=== PATIENT | male | born 1990 | race Caucasian/White ===

== ENCOUNTER 2023-10-30 18:11 | Emergency (ER) | payer BC, MEDICAID, SELFPAY ==
--- NOTE | 2023-10-30 18:12 | XRR_ITS ---
PROCEDURE INFORMATION: Exam: XR Chest Exam date and time: 10/30/2023 6:46 PM Age: 33 years old Clinical indication: Shortness of breath; Additional info: Cp TECHNIQUE: Imaging protocol: Radiologic exam of the chest. Views: 1 view. COMPARISON: No relevant prior studies available. FINDINGS: Lungs: Unremarkable. No consolidation. Pleural spaces: Unremarkable. No pleural effusion. No pneumothorax. Heart/Mediastinum: Unremarkable. No cardiomegaly. Bones/joints: Unremarkable. XR/XR chest 1V portable [id number] IMPRESSION: No acute findings.
--- NOTE | 2023-10-30 18:12 | ECG_ITS ---
[facility] Test Date: 2023-10-30 Pat Name: Alejandro Luz Department: Room: Gender: Male [facility] Care Center Assistant Director: : 1990 Requested By: Linda Jaime Order Number: [id number] Korin MD: Tru Jhaveri M.D. Measurements Intervals [place] Rate: 76 P: 56 NV: 172 QRS: 54 QRSD: 96 T: 32 QT: 371 QTc: 417 Interpretive Statements SINUS RHYTHM WITH MARKED SINUS ARRHYTHMIA No previous ECG available for comparison Electronically Signed On 10-31-2023 7:18:40 DIRECTOR GLOBAL MARKET RESEARCH by Tru Jhaveri M.D. [email or web address].[email or web address] health centerRa Pharmaceuticalsbluffton hospital.Pongr/store/Ov/[id number]
[2023-10-30 18:20] VITALS: BP 154/89; PULSE 81; RESP 16; TEMP 36.4; O2SAT 99; BMI 32.4
[2023-10-30 18:51] LABS: Basophils % 0.4 %; Eosinophils # 0.4 10^3/uL (0.0-0.8); Eosinophils % 4.9 %; Hematocrit 48.9 % (37-53); Lymphocytes # 1.8 10^3/uL (0.8-4.8); Lymphocytes % 25.5 %; Mean Corpuscular HGB Conc 31.5 g/dL (30-55); Mean Corpuscular Hemoglobin 25.5 pg (27-33); Mean Corpuscular Volume 81.1 fl (82-101); Mean Platelet Volume 9.8 fL (7.4-10.4); Monocytes # 0.4 10^3/uL (0.2-0.9); Monocytes % 5.8 %; Neutrophils # 4.49 10^3/uL (1.8-7.7); Neutrophils % 63.1 %; Nucleated Red Blood Cells % 0 %; Platelet Count 243 10^3/cmm (157-399); Red Blood Count 6.03 10^6/uL (3.85-5.65); Red Cell Distribution Width 12.7 % (12.1-15.1); White Blood Count 7.11 10^3/uL (3.29-11.43)
--- NOTE | 2023-10-30 19:02 | ED_ITS ---
HPI - Chest Pain 2 General: Chief Complaint: Chest Pain Stated Complaint: cpsob Time Seen by Provider: 10/30/23 18:12 History of Present Illness: Patient presents to the ER with left-sided chest pressure began couple hours ago. Rated a 7 out of 10 when it began it has improved but is still there. Patient says he may be worse with when he exerts himself and he gets little short of breath. Patient says this is more of a pressure and is not sharp and stabbing it is all left-sided and stays on the left side. Patient is never had this before. Patient has no cardiac history himself does have a strong family history. Review of Systems 2 General: Reports: 10 or more systems reviewed and unremarkable except in HPI and below Physical Exam 2 Const: COMMON NORMALS: no acute distress, average body habitus, patient oriented x3, no limitations, healthy appearing, alert and well nourished HENMT: COMMON NORMALS: normocephalic, atraumatic, hearing grossly normal bilaterally, external ears normal, Normal external nose present, moist oral mucous membranes and oropharynx normal HEAD & SCALP: normocephalic and atraumatic NOSE: Normal external nose present EXTERNAL EAR: Yes external ears normal Neck/C-Spine: COMMON NORMALS: full ROM, no lymphadenopathy, supple, no meningeal signs, no JVD and Thyroid normal THYROID: Thyroid normal Chest: COMMONS NORMALS: normal inspection of the chest and normal palpation of entire chest wall Resp: COMMON NORMALS: normal respiratory effort, No retractions, No use of accessory muscles and clear to auscultation bilaterally AUSCULTATION: clear to auscultation bilaterally Cardio: COMMON NORMALS: no JVD, regular rate, regular rhythm, S1 normal heart sound present, S2 normal heart sound present, No gallops present (Cardio), No clicks present (Cardio), No murmurs present (Cardio) and No rub (Cardio) R ATE: regular rate RHYTHM: regular rhythm HEART SOUNDS: S1 normal heart sound present and S2 normal heart sound present GI: COMMON NORMALS: Normal to inspection, nondistended, normoactive bowel sounds present, Soft to palpation, non-tender, No hepatosplenomegaly present and no masses PALPATION: Yes Soft to palpation and Yes No hepatosplenomegaly present Neuro: COMMON NORMALS: patient oriented x3 SENSORIUM/ORIENTATION: Yes alert MENINGEAL SIGNS: Yes no meningeal signs Course 2 Vital Signs: Vital signs: Vital Signs Temperature 97.5 F L 10/30/23 18:20 Pulse Rate 73 10/30/23 20:59 Respiratory Rate 16 10/30/23 20:59 Blood Pressure 123/79 10/30/23 20:59 Pulse Oximetry 97 10/30/23 20:59 Oxygen Delivery Me thod Room Air 10/30/23 18:20 MDM - Chest Pain Medical Decision Making Patient presents to the ER with chest pain. Patient was worked up in a standard chest pain fashion included serial EKGs, serial labs and chest x-ray. All of which were essentially benign did not show any acute cardiac cause of his chest pain. Troponin was 6 with a delta of 0 patient be discharged home and should follow-up with his primary care doctor for further evaluation testing. Differential Diagnosis Unlikely acute massive pulmonary embolism, acute respiratory failure, acute myocardial infarction, cardiac arrest or sudden cardiac Medical Records I reviewed the patient's medical records. Lab Data I reviewed the patient's lab results. 10/30/23 18:44 10/30/23 18:44 Radiology Impressions Chest X-Ray 10/30/23 18:12 IMPRESSION: No acute findings. Laboratory Results WBC 7.11 10^3/uL (3.29-11.43) 10/30/23 18:44 RBC 6.03 10^6/uL (3.85-5.65) H 10/30/23 18:44 Hgb 15.40 g/dL (11.27-16.99) 10/30/23 18:44 Hct 48.9 % (37-53) 10/30/23 18:44 MCV 81.1 fl (82-101) L 10/30/23 18:44 MCH 25.5 pg (27-33) L 10/30/23 18:44 MCHC 31.5 g/dL (30-55) 10/30/23 18:44 RDW 12.7 % (12.1-15.1) 10/30/23 18:44 Plt Count 243 10^3/cmm (157-399) 10/30/23 18:44 MPV 9.8 fL (7.4-10.4) 10/30/23 18:44 Neut % (Auto) 63.1 % 10/30/23 18:44 Lymph % (Auto) 25.5 % 10/30/23 18:44 Stanley % (Auto) 5.8 % 10/30/23 18:44 Eos % (Auto) 4.9 % 10/30/23 18:44 Baso % (Auto) 0.4 % 10/30/23 18:44 Neut # (Auto) 4.49 10^3/uL (1.8-7.7) 10/30/23 18:44 Lymph # (Auto) 1.8 10^3/uL (0.8-4.8) 10/30/23 18:44 Stanley # (Auto) 0.4 10^3/uL (0.2-0.9) 10/30/23 18:44 Eos # (Auto) 0.4 10^3/uL (0.0-0.8) 10/30/23 18:44 Baso # (Auto) 0.0 10^3/uL (0.0-0.1) 10/30/23 18:44 Nucleated RBC % (auto) 0 % 10/30/23 18:44 Nucleated RBCs # 0.0 /100WBC 10/30/23 18:44 Sodium 136 mmol/L (136-145) 10/30/23 18:44 Potassium 3.6 mmol/L (3.5-5.1) 10/30/23 18:44 Chloride 100 mmol/L (98-107) 10/30/23 18:44 Carbon Dioxide 26 mmol/L (22-29) 10/30/23 18:44 Anion Gap 13.6 (5-19) 10/30/23 18:44 BUN 11 mg/dL (6-20) 10/30/23 18:44 Creatinine 0.9 mg/dL (0.7-1.2) 10/30/23 18:44 GFR Calculation 96.0 mL/min (90-130) 10/30/23 18:44 Glucose 101 mg/dL (65-115) 10/30/23 18:44 Calculated Osmolality 282 mOsm/kg (285-295) L 10/30/23 18:44 Calcium 9.5 mg/dL (8.5-10.5) 10/30/23 18:44 Total Bilirubin 0.3 mg/dL (0.15-1.2) 10/30/23 18:44 AST 22 U/L (0-40) 10/30/23 18:44 ALT 40 U/L (0-41) 10/30/23 18:44 Alkaline Phosphatase 77 U/L (40-130) 10/30/23 18:44 Troponin T Baseline < 6 ng/L (0-15) 10/30/23 18:44 Troponin T 120 Minute 6.00 ng/L (0-15) 10/30/23 20:25 Delta Troponin T 0.49742 ABS# (0-10) 10/30/23 20:25 NT-Pro-B Natriuret Pep < 36 pg/mL (0-125) 10/30/23 18:44 Total Protein 6.9 g/dL (6.6-8.7) 10/30/23 18:44 Albumin 4.5 g/dL (3.5-5.2) 10/30/23 18:44 Globulin 2.4 g/dL (1.3-4.6) 10/30/23 18:44 All radiology interpretation(s) finalized by discharge EKG Data EKG 1: I personally reviewed and interpreted this EKG as follows: EKG interpretation date: 10/30/23 EKG interpretation time: 18:16 Prior EKG tracings: not available for review Interpretation: EKG shows ventricular rate 76 bpm, SD interval 172, QRS duration 96, QTc of 4 1, sinus rhythm with marked sinus arrhythmia, EKG 2: I personally reviewed and interpreted this EKG as follows: EKG interpretation date: 10/30/23 EKG interpretation time: 21:12 Prior EKG tracings: available for review Interpretation: EKG showed ventricular rate 67 bpm, SD interval 165, QRS duration 94, QTc of 394, sinus rhythm, no ST-T wave changes Discharge Plan Discharge Patient Disposition: Home Clinical Impression: Atypical chest pain Condition: Stable Discharge Orders: Discharge ED (Routine); Ordered 10/30/23 Ordered By: Rylan Joseph Patient Instructions: Chest Pain (ED) Activity Restrictions/Additional Instructions: Your chest pain workup in the ER did not show any acute coronary cause of your chest pain. It is thought to be noncardiac in nature. Please follow-up with your family practice physician within the next 7 to 10 days for further evaluation and testing. If anything changes please feel free to return to the ER. Coding Level of Care Code ED Marketing Programs Manager for Kaiden Carrasco
[2023-10-30 19:14] LABS: Troponin(5th) Baseline < 6 ng/L (0-15)
[2023-10-30] MEDS: ketorolac 30 mg/mL INJ IVP (19:15)
[2023-10-30 19:45] LABS: Alanine Aminotransferase 40 U/L (0-41); Albumin Level 4.5 g/dL (3.5-5.2); Alkaline Phosphatase 77 U/L (40-130); Aspartate Amino Transferase 22 U/L (0-40); Blood Urea Nitrogen 11 mg/dL (6-20); Calcium 9.5 mg/dL (8.5-10.5); Carbon Dioxide 26 mmol/L (22-29); Chloride 100 mmol/L (98-107); Globulin 2.4 g/dL (1.3-4.6); Glucose 101 mg/dL (65-115); NT Pro B Type Natriuretic Pept < 36 pg/mL (0-125); Osmolality Calculated 282 mOsm/kg (285-295); Sodium 136 mmol/L (136-145); Total Bilirubin 0.3 mg/dL (0.15-1.2); Total Protein 6.9 g/dL (6.6-8.7)
[2023-10-30 19:47] LABS: Anion Gap 13.6 (5-19); Potassium 3.6 mmol/L (3.5-5.1)
[2023-10-30 20:54] LABS: Troponin 5 2HR Delta 0.00001 ABS# (0-10)
[2023-10-30 20:59] VITALS: BP 123/79; PULSE 73; RESP 16; O2SAT 97
--- NOTE | 2023-10-30 21:12 | ECG_ITS ---
[facility] Test Date: 2023-10-30 Pat Name: Alejandro Luz Department: Room: Gender: Male Rn House Supervisor: : 1990 Requested By: Linda Jaime Order Number: [id number] Langley MD: Tru Jhaveri M.D. Measurements Intervals [place] Rate: 67 P: 28 LA: 165 QRS: 47 QRSD: 94 T: 40 QT: 378 QTc: 401 Interpretive Statements SINUS RHYTHM Compared to ECG 10/30/2023 18:16:58 Sinus arrhythmia no longer present Electronically Signed On 10-31-2023 7:19:20 CENTRAL SUPPLY SUPERVISOR by Tru Jhaveri M.D. [email or web address].[email or web address]store/[id number]
[2023-10-30 21:20] VITALS: BP 123/79; PULSE 73; RESP 16; TEMP 36.4; O2SAT 97
== END 2023-10-30 21:21 | disposition home or self-care (01) ==
PROVIDERS: Emergency Medicine; Emergency Provider Emergency Medicine
DX: R07.89 Other chest pain (principal)
CPT/HCPCS: 36415; 71045; 80053; 83880; 84484; 85025; 93005; 96374; 99285; J1885

== ENCOUNTER 2023-11-27 12:22 | Outpatient (CLI) | payer BC, MEDICAID, SELFPAY ==
[2023-11-27 12:43] VITALS: BMI 33.3
--- NOTE | 2023-11-27 12:47 | ECG_ITS ---
[facility] Test Date: 2023-11-27 Pat Name: Alejandro Luz Department: Room: Gender: Male Manager Marketing: : 1990 Requested By: Aldo Ervin Order Number: [id number] Langley MD: Petar Wang M.D. Interpretive Statements NAME OF STUDY: TREADMILL STRESS TEST INDICATION: Chest Pain PROCEDURE: At the baseline, the patient's blood pressure was 126/9 with a heart rate of 84. The baseline electrocardiogram showed normal sinus rhythm with normal ST-Ts.. The patient exercised for 10 minutes and 33 seconds on a standard Darin protocol. Patient attained a maximum heart rate of 181 beats per minute(97% of the maximum predicted heart rate) with a blood pressure at the peak exercise of 165/79 mm Hg. The EKG at the peak exercise revealed no significant changes. Patient did not have any chest pain or any significant cardiac arrhythmias with the exercise During the recovery phase, there were no new changes. Blood pressure at the end of the recovery phase was 128/86 mm Hg with a heart rate of 104 per minute. CONCLUSION: 1. Normal EKG response to treadmill exercise 2. No exercise-induced chest pain or cardiac arrhythmia 3. GERD exercise tolerance, attained a maximum of 13.5 METs Electronically Signed On 12-01-2023 20:32:05 RECEIVING INSPECTOR by Petar Wang M.D. [id number]
[2023-11-27 13:19] VITALS: BP 132/84; PULSE 74
== END 2023-11-27 12:23 | disposition home or self-care (01) ==
LOC: CDL 12:23
PROVIDERS: PCP Family Medicine; Visit Provider Family Medicine
DX: R07.89 Other chest pain (principal)
CPT/HCPCS: 93017

== ENCOUNTER 2025-03-25 12:49 | Outpatient (CLI) | payer BC, MEDICAID, SELFPAY ==
--- NOTE | 2025-03-25 12:55 | CT_ITS ---
WS: [id number] CT ABDOMEN PELVIS TECHNIQUE: Contrast-enhanced CT of the abdomen and pelvis with coronal and sagittal reformatted images. CLINICAL INFORMATION: RLQ ABDOMINAL PAIN COMPARISON: None. DLP: 624.[address] scans at [facility] use at least one of these dose optimization techniques: automated exposure control; mA and/or kV adjustment per patient size (includes targeted exams where dose is matched to clinical indication); or iterative reconstruction. FINDINGS: Enhancing distended appendix in the RIGHT lower quadrant with submucosal enhancement and surrounding induration. Appendix measures approximately 11 mm in transverse dimension. Findings compatible with acute appendicitis. No abscess or fluid collection. No evidence of perforation. Fatty liver. Normal portal vein and splenic vein. Normal spleen. Normal GE junction. Normal pancreatic parenchymal enhancement. Normal caliber abdominal aorta. Celiac and SMA are patent. Adrenal glands are normal. Normal renal parenchymal enhancement. No hydronephrosis. Tiny fat-containing umbilical he rnia. Few sigmoid diverticuli. Small fat-containing inguinal hernias. Grade 1 anterolisthesis L5 on S1 with bilateral pars defects. Recommend spine surgery consultation. CT/CT abdomen pelvis w con* [id number] IMPRESSION: 1. Findings compatible with acute appendicitis described above. No abscess or fluid collection. No perforation. 2. Grade 1 anterolisthesis L5 on S1 measuring 6.9 mm with bilateral pars defec ts. Recommend follow-up spine surgery consultation on an elective basis. 3. Fatty liver. Notified Aldo Baez MD at 03/25/2025 1:56 PM.
[2025-03-25] MEDS: iohexol 350 mg/mL 500 mL Btl (per mL) IV (13:46)
== END 2025-03-25 12:50 | disposition home or self-care (01) ==
LOC: RAD 12:51
PROVIDERS: PCP Family Medicine; Visit Provider Family Medicine
DX: R10.31 Right lower quadrant pain (principal)
CPT/HCPCS: 74177

== ENCOUNTER 2025-03-25 14:43 | Day surgery (SDC) | payer BC, MEDICAID, SELFPAY ==
[2025-03-25] VITALS (13 sets, daily range): BP systolic 125–148; BP diastolic 74–97; PULSE 74–99; RESP 15–18; TEMP 36.3–36.8; O2SAT 92–100; BMI 34.5
--- OUTSIDE RECORDS SUMMARY | 2025-03-25 14:48 | XMS_ITS | Continuity of Care Document ---
Author Organization [facility], LSilverio, [facility] ([facility]) Address [address] [place] [address] Assessment No assessment recorded. Plan of Treatment Reminders Order Date Submit Date Provider Last Modified By Organization Details Last Modified Time Details Appointments OFFICE VISIT SAUMYA 2024 11:30A M Aldo Baez MD Not available Not available Not available Lab CBC w/ auto diff 2024 025 [email or web address] [facility], [address], [place], [address], 03/25/2025 13:18:28 CMP, serum or plasma 2024 025 DONNY [facility], [address], [address], [place], [address], 03/25/2025 14:29:40 urinalysi s complete, reflex culture 2024 025 [email or web address] [facility], [address], [address], [place], [address], 03/25/2025 13:18:56 Referral None recorded. Procedures None recorded. Surgeries None recorded. Imaging CT, abdomen + pelvis, w/ contrast 2024 025 [facility], [address], [place], [address], 03/25/2025 13:43:59 Medication Orders None recorded. Patient TargetsNo targets recorded. Patient InstructionsNo instructions recorded. Reason for Referral None Reported. Results Created Date Observation Date Name Description Value Unit Range Abnormal Flag Note LastModifiedBy Organization Detail LastModifiedTime 03/25/2003/25/2025 CT, abdom en + pelvi s, w/ contr ast No observ ation record ed. [email or web address] [facility] [address] [place], [address], 03/25/2025 15:46:02 Result Notes None recorded. Problems Name Problem SNOMED Code Status Onset Date Resolution Date Notes Provider Name and Address Organization Details Recorded Time Essential hypertension 54081042 Active 2023 HOLLY sorensen [facility]CDonte 4 14:47:58 Hyperglycemia 25947667 Active 2023 [facility]ns[facility]uel[facility] 4 14:48:05 Problem Notes None recorded. Procedures Surgical History Date Name Laterality Status Provider Name and Address Organization Details Recorded Time vasectomy completed HOLLY CHRISTINA [facility] L[facility]CDonte 12/16/2024 14:18:25 Imaging Results None recorded. Procedure Notes None recorded. Medical Equipment None Reported. Allergies No known drug allergies Medications Name Sig Start Date Stop Date Status Note LastModified by Organization Details LastModified Time prednison e 20 mg tablet TAKE 2 TABLETS BY MOUTH ONCE DAILY FOR 5 DAYS 03/25 completed Not Available Not Available Not Available oxycodone -acetamin ophen 5 mg-325 mg tablet TAKE ONE TO TWO TABLETS BY MOUTH ONE HOUR PRIOR TO PROCEDUR E 12/16 completed Not Available Not Available Not Available pantopraz ole 40 mg tablet,de layed release TAKE 1 TABLET BY MOUTH ONCE DAILY active Not Available Not Available No t Available losartan 25 mg tablet TAKE 1 TABLET BY MOUTH ONCE DAILY active Not Available Not Available No t Available diazepam 10 mg tablet TAKE ONE TABLET BY MOUTH ONE HOUR PRIOR TO PROCEDUR E 12/16 completed Not Available Not Available Not Available losartan potassium (bulk) daily 11/12 completed 436; Recorded 08/07/20 22 8:12AM by Holly Christina LPN (Authori sudarshan through Aldo Baez MD), Refill Request; Refill Quantity : 90; Tablet; Not Available Not Available Not Available Vitals Date Recorded Body height Body mass index (BMI) Body weight Oxygen saturation Oxygen saturation in Arterial blood by Pulse oximetry Heart rate Respiratory rate Body temperature Systolic blood pressure Diastolic blood pressure Provider Name and Address Organization Details Last Updated DateTime 168.91 cm 34 kg/m2 32176.7 7 g 97 % 97 % 87 /min 18 /min 97.6 [degF] 122 mm[Hg] 80 mm[Hg] Stephanie Alex [facility] 12:24:45 Social History Question Answer Notes LastModified by [employer] Details LastModified Time Tobacco Smoking Status Former Smoker HOLLY CHRISTINA [facility] 01/16/2023 13:42:21 When Did You Quit Smoking? 11-15yearssi [email or web address] ette 2009 Information not available 12/16/2024 What Was The Date Of Your Most Recent Tobacco Screening? 03/25/2025 [email or web address] Information not available 03/25/2025 What Is Your Current Pack Years? 10packyears 3 Years [email or web address] Information not available 11/12/2023 Sex: Unknown Functional Status Question Answer Note LastModified by [employer] Details LastModified Time Do you or have you ever used any other forms of tobacco or nicotine? No [email or web address] Information not available 11/12/2023 What is your level of alcohol consumption? Occasional [email or web address] Information not available 01/16/2023 Do you or have you ever used any nicotine-free cigarettes, vape, or chewing tobacco? No [email or web address] Information not available 12/16/2024 Mental Status None recorded. Family History Relationship Description Onset Age of this Age Resolved Age Notes LastModified by Organization Details LastModified Time Mother Diabetes mellitus Not available 11/12 14:48:19 Maternal Grandfather Malignant tumor of testis [email or web address] Not available 11/12 14:48:38 Medical History No medical history recorded. Immunizations Vaccine Type Date Status Note Provider Nam e and Address Organization Details Recorded Time MMR 3 completed HOLLY sorensen, [facility] 11/12/2023 14:47:20 MMR 9 completed HOLLY CHRISTINA null, [facility] 11/12/2023 14:47:20 Tdap 2 completed HOLLY CHRISTINA null, [facility] 11/12/2023 14:47:20 Hep B, unspecified formulation 0 completed HOLLY sorensen, [facility] 11/12/2023 14:47:20 polio, unspecified formulation 9 [facility] 11/12/2023 14:47:20 polio, unspecified formulation 0 completed HOLLY CHRISTINA null, [facility] 11/12/2023 14:47:20 polio, unspecified formulation 3 completed HOLLY sorensen, [facility] 11/12/2023 14:47:20 polio, unspecified formulation 8 completed HOLLY sorensen, [facility] 11/12/2023 14:47:20 polio, unspecified formulation 8 completed HOLLY sorensen, [facility] 11/12/2023 14:47:20 Td (adult), 2 Lf tetanus toxoid, preservative free, adsorbed 3 completed HOLLY sorensen, [facility] 11/12/2023 14:47:21 Hep B, adolescent/high risk 1 completed HOLLY sorensen, [facility] 11/12/2023 14:47:21 Hep B, adolescent/high risk infant 0 completed HOLLY CHRISTINA null, [facility] 11/12/2023 14:47:21 Hep A, ped/adol, 2 dose 3 completed HOLLY CHRISTINA null, [facility] 11/12/2023 14:47:21 Hib (PRP-T) 0 completed HOLLY CHRISTINA null, [facility] 11/12/2023 14:47:21 DTaP 9 completed HOLLY CHRISTINA null, [facility] 11/12/2023 14:47:21 DTaP 0 completed HOLLY CHRISTINA null, [facility] 11/12/2023 14:47:21 DTaP 3 completed HOLLY CHRISTINA null, [facility] 11/12/2023 14:47:21 DTaP 8 completed HOLLY CHRISTINA null, [facility] 11/12/2023 14:47:21 DTaP 8 completed HOLLY CHRISTINA null, [facility] 11/12/2023 14:47:21 Tdap 7 completed HOLLY CHRISTINA null, [facility] 11/12/2023 14:47:20 Past Encounters Encounter ID Performer Location Encounter Start Date Encounter Closed Date Diagnosis/Indication Diagnosis SNOMED-CT Code Diagnosis ICD10 Code Diagnosis Note [id number] Aldo Baez MD [facility] ([facility]) [address] [place] [phone] 03/25/2025 12:16:01 03/25/2025 13:11:32 Abdominal pain 38979843 R10.9 Right lowe r quadrant pain 144936592 R10.31 heel jar positive, voluntary rlq guarding [facility] point[facility] starting periumbili johanna and migrating to rlqloss of appetitech ills last nightall the above is fairy classic for appendicit is and must be ruled out. stat ct will be requested. labs pending.we discussed a broader differenti al including urinary tract pain (kidney stone), colitis, adenitis etc. Health Concerns Section Related Observation LastModified by Organization Detai ls LastModified Time None Recorded Concern Status LastModified by Organization Details LastModified Time None Recorded Payers Encounter Date Sequence Insurance Name Policy Number Policy Boland Covered Member ID Boland Member ID Guarantor Name 03/25/2025 1 [employer] [place] (MEDICA[place] REPLACEMENT - HMO) [id number] Alejandro Luz [id number] Alejandro Luz Notes Date Note Type Note Provider Name and Address Organization Details Recorded Time 03/25/2025 text/html Abdominal PainReported bypatient.Location :[facility] Quality:aching;dul l Severity:mild Onset/Timing:acute Aggravating Factors:movement; he has not eaten since the pain started patient laid down last night and his right lower quadrant started cramping and cramped throughout the night. it is sore, tender to the touch and hurts when he takes a deep breath, coughs or sneezes. this occurred after work yesterdayhe lifted and moved a bag of concrete and other physical activity throughout the day. no fever no nauseahe had a taco last night. that is the last he has eaten. he has had decreased appetite. Aldo Baez MD [address] [place] [address], [phone], [facility], LDonteLLuico 03/25/2025 13:11:31
--- OUTSIDE RECORDS SUMMARY | 2025-03-25 14:48 | XMS_ITS | Encounter Summary ---
Author Organization [facility] Address [address] [place] [address] Care Team Providers Care Advance Scout Name Role Phone Unavailable Primary Care Provider Unavailabl e Encounter Details Date Type Department Care Team (Latest Contact Info) Description 01/18/2005 Outpatient Historical [facility] [address] [place] [id number] CHEST PAIN NOS (Primary Dx) Social History Tobacco Use Types Packs/Day Years Used Date Smoking Tobacco: Never Assessed Sex and Gender Information Value Date Recorded Sex Assigned at Not on file 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
--- OUTSIDE RECORDS SUMMARY | 2025-03-25 14:48 | XMS_ITS | Clinical Summary ---
Author Organization [employer] Address [address] [place]: Epic Prelude ADT [place] [address] Care Team Providers Care Machine Slat Basket Maker Name Role Phone Unavailable Primary Care Provider Unavailabl e Immunizations Immunization Administration Dates Next Due (M-M-R II/PRIORIX)(12 MO UP) MEASLES, MUMPS AND RUBELLA VIRUS VACCINE, 0.5 ML IM/SUBCUT 03/08/1993 (TDVAX)(7 YRS UP) TETANUS AN D DIPHTHERIA TOXOIDS, ADSORBED (2 LF OF TETANUS TOXOID AND 2 LF OF DIPHTHERIA TOXOID), 0.5ML (PF), IM 05/06/2003 Dt Dtp Dtap Vaccine 04/07/1993,11/15/1989 HIB, Unspecified Formulation 11/15/1989 Hepatitis A Vaccine 05/06/2003 Hepatitis B Vaccine 12/05/2000,07/18/2000,1999 IPV/OPV 04/07/1993,11/15/1989 Social History Tobacco Use Types Packs/Day Years Used Date Smoking Tobacco: Never Assessed Sex and Gender Information Value Date Recorded Sex Assigned at Not on file 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
--- OUTSIDE RECORDS SUMMARY | 2025-03-25 14:48 | XMS_ITS | Data Portability ---
Author Organization LALIT Fritz Cannon [facility], [facility], [facility] Address [address] [place] [address] Assessment No assessment recorded. Plan of Treatment Reminders Order Date Submit Date Provider Last Modified By Organization Details Last Modified Time Details Appointments OFFICE VISIT SAUMYA 2024 11:30A M Aldo Baez MD Not available Not available Not available Lab CBC w/ auto diff 2024 025 [email or web address] [facility], [address], [address], [place], [address], 03/25/2025 13:18:28 CMP, serum or plasma 2024 025 [facility], [address], [address], [place], [address], 03/25/2025 14:29:40 urinalys is complete , reflex culture 2024 025 [email or web address] [facility], [address], [address], [place], [address], 03/25/2025 13:18:56 CMP, serum or plasma 2024 025 [facility], [address], [address], [place], [address], 12/19/2024 09:54:05 lipid panel, blood 2024 025 [facility], [address], [address], [place], [address], 12/19/2024 09:54:03 CBC 2024 025 [facility], [address] [facility] [address], [address], [place], [address], 12/19/2024 09:18:39 Referral None recorded . Procedures upper endoscop y procedur e (EGD) (PROC) 2024 025 [email or web address] Adebayo Barajas MD, [address], [facility], [place], [address], 01/02/2025 08:38:05 Surgeries vasectom y (SURG) 2023 024 [facility], [address], [address], [place], [address], 08/11/2024 11:55:[address], abdomen + pelvis, w/ contrast 2024 025 [facility] Orders, [address] [facility], [place], [address], 03/25/2025 13:43:59 Medication Orders pantopra zole 40 mg tablet,d elayed release 2024 025 [facility], [address], [place], [address], 12/16/2024 15:08:05 Patient TargetsNo targets recorded. Patient InstructionsNo instructions recorded. Reason for Referral None Reported. Results Created Date Observation Date Name Description Value Unit Range Abnormal Flag Note LastModifiedBy Organization Detail LastModifiedTime 03/25/2003/25/2025 CBC WBC 13.4 x10 4.5-10 .5 high Not Available [facility] [address] [facility] [address], [place], [address], 03/25/2025 13:28:56 03/25/20 25 03/25/2025 CBC RBC 6.20 x10 4.30-5 .90 high Not Available [facility] [address] [facility], [place], [address], 03/25/2025 13:28:56 03/25/20 25 03/25/2025 CBC HGB 16.3 g/dL 13.5-1 8.0 Not Available [facility] [address] [facility], [place], [address], 03/25/2025 13:28:56 03/25/20 25 03/25/2025 CBC HCT 50.6 % 35.0-6 0.0 Not Available [facility] [address] [facility], [place], [address], 03/25/2025 13:28:56 03/25/20 25 03/25/2025 CBC MCV 81.6 fL 80.0-9 9.9 Not Available [facility] [address] [facility], [place], [address], 03/25/2025 13:28:56 03/25/20 25 03/25/2025 CBC MCH 26.2 pg 27.0-3 2.0 low Not Available [facility] [address] [facility], [place], [address], 03/25/2025 13:28:56 03/25/20 25 03/25/2025 CBC MCHC 32.1 g/dL 32.0-3 6.0 Not Available [facility] [address] [facility], [place], [address], 03/25/2025 13:28:56 03/25/20 25 03/25/2025 CBC RDW 14.1 % 11.5-1 4.5 Not Available [facility] [address] [facility], [place], [address], 03/25/2025 13:28:56 03/25/20 25 03/25/2025 CBC plt 218.7 x10 150.0- 451.0 Not Available [facility] [address] [facility], [place], [address], 03/25/2025 13:28:56 03/25/20 25 03/25/2025 CBC lymphocytes % 15.6 % 20.0-5 0.0 low Not Available [facility] [address] [facility], [place], [address], 03/25/2025 13:28:56 03/25/20 25 03/25/2025 CBC granulcytes % 76.3 % 30.0-7 0.0 high Not Available [facility] [address], [place], [address], 03/25/2025 13:28:56 03/25/20 25 03/25/2025 CBC monocytes % 6.5 % 2.0-16 .0 Not Available [facility] [address], [place], [address], 03/25/2025 13:28:56 03/25/20 25 03/25/2025 CBC granulcytes# 10.2 x10 Not Danay ilable [facility] [address], [place], [address], 03/25/2025 13:28:56 03/25/20 25 03/25/2025 CBC lymphocytes # 2.1 x10 Not Available [facility] [address] [facility] [address], [place], [address], 03/25/2025 13:28:56 03/25/20 25 03/25/2025 CBC monocytes # 0.9 x10 Not Avai lable [facility] [address], [place], [address], 03/25/2025 13:28:56 03/25/20 25 03/25/2025 URINA LYSIS WITH MICRO color Yellow Not Available [facility] [address], [place], [address], 03/25/2025 13:54:31 03/25/20 25 03/25/2025 URINA LYSIS WITH MICRO clarity Clear Not Available [facility] [address] [facility] [address], [place], [address], 03/25/2025 13:54:31 03/25/20 25 03/25/2025 URINA LYSIS WITH MICRO glu Negati ve Not Available [facility] [address], [place], [address], 03/25/2025 13:54:31 03/25/20 25 03/25/2025 URINA LYSIS WITH MICRO bili Negati ve Not Available [facility] [address], [place], [address], 03/25/2025 13:54:31 03/25/20 25 03/25/2025 URINA LYSIS WITH MICRO ket Negati ve Not Available [facility] [address], [place], [address], 03/25/2025 13:54:31 03/25/20 25 03/25/2025 URINA LYSIS WITH MICRO S.g 1.020 1.005- 1.025 Not Available [facility] [address] [facility], [place], [address], 03/25/2025 13:54:31 03/25/20 25 03/25/2025 URINA LYSIS WITH MICRO pH 6.0 5.0-7. 0 Not Available [facility] [address], [place], [address], 03/25/2025 13:54:31 03/25/20 25 03/25/2025 URINA LYSIS WITH MICRO pro Negati ve Not Available [facility] [address], [place], [address], 03/25/2025 13:54:31 03/25/20 25 03/25/2025 URINA LYSIS WITH MICRO uro 0.2 E.U./d L Not Available [facility] [address], [place], [address], 03/25/2025 13:54:31 03/25/20 25 03/25/2025 URINA LYSIS WITH MICRO nit Negati ve Not Available [facility] [address], [place], [address], 03/25/2025 13:54:31 03/25/20 25 03/25/2025 URINA LYSIS WITH MICRO blo Negati ve Not Available [facility] [address], [place], [address], 03/25/2025 13:54:31 03/25/20 25 03/25/2025 URINA LYSIS WITH MICRO leila Negati ve Not Available [facility] [address], [place], [address], 03/25/2025 13:54:31 03/25/20 25 03/25/2025 URINA LYSIS WITH MICRO WBC 0-1 Not Available [facility] [address] [facility], [place], [address], 03/25/2025 13:54:31 03/25/20 25 03/25/2025 URINA LYSIS WITH MICRO RBC Negati ve Not Available [facility] [address], [place], [address], 03/25/2025 13:54:31 03/25/20 25 03/25/2025 URINA LYSIS WITH MICRO epi cells Negati ve Not Available [facility] [address] [facility], [place], [address], 03/25/2025 13:54:31 03/25/20 25 03/25/2025 URINA LYSIS WITH MICRO bacteria Negati ve Not Available [facility] [address] [facility], [place], [address], 03/25/2025 13:54:31 03/25/20 25 03/25/2025 URINA LYSIS WITH MICRO other ng Not Available [facility] [address] [facility], [place], [address], 03/25/2025 13:54:31 03/25/20 25 03/25/2025 CMP (MALE ) glucose 99.0 mg/dL 60.0-9 9.0 Not Available [facility] [address] [facility], [place], [address], 03/25/2025 14:29:40 03/25/20 25 03/25/2025 CMP (MALE ) BUN (blood urea nitrogen) 17.0 mg/dL 10.0-2 6.0 Not Available [facility] [address] [facility], [place], [address], 03/25/2025 14:29:40 03/25/20 25 03/25/2025 CMP (MALE ) creatinine (serum) 1.2 mg/dL 0.4-1. 5 Not Available [facility] [address] [facility], [place], [address], 03/25/2025 14:29:40 03/25/20 25 03/25/2025 CMP (MALE ) BUN/creatini ne ratio 14.17 ratio Not Available [facility] [address] [facility], [place], [address], 03/25/2025 14:29:40 03/25/20 25 03/25/2025 CMP (MALE ) eGFR calculated 72.8 Not Available [facility] [address] [facility], [place], [address], 03/25/2025 14:29:40 03/25/20 25 03/25/2025 CMP (MALE ) total protein 7.6 g/dL 6.0-8. 5 Not Available [facility] [address] [facility] [address], [place], [address], 03/25/2025 14:29:40 03/25/20 25 03/25/2025 CMP (MALE ) total bilirubin 1.1 mg/dL 0.2-1. 3 Not Available [facility] [address] [facility] [address], [place], [address], 03/25/2025 14:29:40 03/25/20 25 03/25/2025 CMP (MALE ) albumin 4.6 g/dL 3.5-5. 5 Not Available [facility] [address] [facility], [place], [address], 03/25/2025 14:29:40 03/25/20 25 03/25/2025 CMP (MALE ) globulin 3.0 calc Not Available [facility] [address] [facility] 1, [place], [address], 03/25/2025 14:29:40 03/25/20 25 03/25/2025 CMP (MALE ) AST (SGOT) 27.0 U/L 0.0-46 .0 Not Available [facility] [address] [facility], [place], [address], 03/25/2025 14:29:40 03/25/20 25 03/25/2025 CMP (MALE ) altv (SGPT) 49.0 U/L 13.0-6 9.0 normal Not Available [facility] [address], [place], [address], 03/25/2025 14:29:40 03/25/20 25 03/25/2025 CMP (MALE ) A/G ratio 1.5 ratio Not Available [facility] [address], [place], [address], 03/25/2025 14:29:40 03/25/20 25 03/25/2025 CMP (MALE ) ALP phos 75.0 U/L 30.0-1 40.0 normal Not Available [facility] [address] [facility] 1, [place], [address], 03/25/2025 14:29:40 03/25/20 25 03/25/2025 CMP (MALE ) calcium 9.4 mg/dL 8.4-10 .5 Not Available [facility] [address] [facility] [address], [place], [address], 03/25/2025 14:29:40 03/25/20 25 03/25/2025 CMP (MALE ) sodium 139.0 mmol/ L 136.0- 145.0 Not Available [facility] [address] [facility] [address], [place], [address], 03/25/2025 14:29:40 03/25/20 25 03/25/2025 CMP (MALE ) potassium 4.2 mmol/ L 3.5-5. 1 Not Available [facility] [address] [facility] [address], [place], [address], 03/25/2025 14:29:40 03/25/20 25 03/25/2025 CMP (MALE ) chloride 102.0 mmol/ L 98.0-1 10.0 normal Not Available [facility] [address] [facility], [place], [address], 03/25/2025 14:29:40 03/25/20 25 03/25/2025 CMP (MALE ) C02 30.0 mmol/ L 22.0-3 1.0 Not Available [facility] [address] [facility], [place], [address], 03/25/2025 14:29:40 03/25/20 25 03/25/2025 CMP (MALE ) anion gap 7.0 calc Not Available [facility] [address] [facility], [place], [address], 03/25/2025 14:29:40 03/25/20 25 03/25/2025 CMP (MALE ) osmolality 288.6 calc Not Available [facility] [address] [facility], [place], [address], 03/25/2025 14:29:40 12/20/19 25 12/19/2024 CBC WBC 6.8 x10 4.5-10 .5 Not Available [facility] [address] [facility], [place], [address], 12/19/2024 09:18:39 12/20/19 25 12/19/2024 CBC RBC 5.76 x10 4.30-5 .90 Not Available [facility] [address] [facility], [place], [address], 12/19/2024 09:18:39 12/20/19 25 12/19/2024 CBC HGB 15.3 g/dL 13.5-1 8.0 Not Available [facility] [address] [facility] [address], [place], [address], 12/19/2024 09:18:39 12/20/19 12/19/2024 CBC HCT 46.9 % 35.0-6 0.0 Not Available [facility] [address] [facility], [place], [address], 12/19/2024 09:18:39 12/20/1912/19/2024 CBC MCV 81.5 fL 80.0-9 9.9 Not Available [facility] [address] [facility], [place], [address], 12/19/2024 09:18:39 12/20/1912/19/2024 CBC MCH 26.6 pg 27.0-3 2.0 low Not Available [facility] [address] [facility], [place], [address], 12/19/2024 09:18:39 12/20/1912/19/2024 CBC MCHC 32.7 g/dL 32.0-3 6.0 Not Available [facility] [address] [facility], [place], [address], 12/19/2024 09:18:39 12/20/1912/19/2024 CBC RDW 14.6 % 11.5-1 4.5 high Not Available [facility] [address] [facility], [place], [address], 12/19/2024 09:18:39 12/20/1912/19/2024 CBC plt 189.2 x10 150.0- 451.0 Not Available [facility] [address] [facility], [place], [address], 12/19/2024 09:18:39 12/20/1912/19/2024 CBC lymphocytes % 34.0 % 20.0-5 0.0 Not Available [facility] [address] [facility], [place], [address], 12/19/2024 09:18:39 12/20/19 25 12/19/2024 CBC granulcytes % 50.3 % 30.0-7 0.0 Not Available [facility] [address] [facility], [place], [address], 12/19/2024 09:18:39 12/20/19 25 12/19/2024 CBC monocytes % 8.3 % 2.0-16 .0 Not Available [facility] [address] [facility], [place], [address], 12/19/2024 09:18:39 12/20/19 25 12/19/2024 CBC granulcytes# 3.4 x10 Not Danay ilable [facility] [address] [address], [place], [address], 12/19/2024 09:18:39 12/20/19 25 12/19/2024 CBC lymphocytes # 2.3 x10 Not Available [facility] [address] [facility], [place], [address], 12/19/2024 09:18:39 12/20/19 25 12/19/2024 CBC monocytes # 0.6 x10 Not Avai lable [facility] [address] [address], [place], [address], 12/19/2024 09:18:39 12/20/19 25 12/19/2024 LIPID PROFI LE (MALE ) cholesterol 166.0 mg/dL 0.0-20 0.0 Not Available [facility] [address] [address], [place], [address], 12/19/2024 09:54:03 12/20/19 25 12/19/2024 LIPID PROFI LE (MALE ) trig 245.0 mg/dL 0.0-15 0.0 high Not Available [facility] [address] [facility] 1, [place], [address], 12/19/2024 09:54:03 12/20/19 25 12/19/2024 LIPID PROFI LE (MALE ) HDL - direct 34.0 mg/dL >40.0 low Not Available [facility] [address] [facility], [place], [address], 12/19/2024 09:54:03 12/20/19 25 12/19/2024 LIPID PROFI LE (MALE ) VLDL - direct 49.0 mg/dL Not Available [facility] [address] [facility] 1, [place], [address], 12/19/2024 09:54:03 12/20/19 25 12/19/2024 LIPID PROFI LE (MALE ) LDL - direct 83.0 mg/dL 0.0-13 0.0 Not Available [facility] [address] [facility] 1, [place], [address], 12/19/2024 09:54:03 12/20/19 25 12/19/2024 CMP (MALE ) glucose 99.0 mg/dL 60.0-9 9.0 Not Available [facility] [address] [facility] 1, [place], [address], 12/19/2024 09:54:05 12/20/19 25 12/19/2024 CMP (MALE ) BUN (blood urea nitrogen) 18.0 mg/dL 10.0-2 6.0 Not Available [facility] [address] [facility] 1, [place], [address], 12/19/2024 09:54:05 12/20/19 25 12/19/2024 CMP (MALE ) creatinine (serum) 1.0 mg/dL 0.4-1. 5 Not Available [facility] [address] [facility] 1, [place], [address], 12/19/2024 09:54:05 12/20/19 25 12/19/2024 CMP (MALE ) BUN/creatini ne ratio 18.00 ratio Not Available [facility] [address] [facility], [place], [address], 12/19/2024 09:54:05 12/20/19 25 12/19/2024 CMP (MALE ) eGFR calculated 89.9 Not Available [facility] [address] [facility], [place], [address], 12/19/2024 09:54:05 12/20/19 25 12/19/2024 CMP (MALE ) total protein 6.5 g/dL 6.0-8. 5 Not Available [facility] [address] [facility] 1, [place], [address], 12/19/2024 09:54:05 12/20/19 25 12/19/2024 CMP (MALE ) total bilirubin 0.4 mg/dL 0.2-1. 3 Not Available [facility] [address] [facility], [place], [address], 12/19/2024 09:54:05 12/20/19 25 12/19/2024 CMP (MALE ) albumin 4.2 g/dL 3.5-5. 5 Not Available [facility] [address] [facility], [place], [address], 12/19/2024 09:54:05 12/20/19 25 12/19/2024 CMP (MALE ) globulin 2.3 calc Not Available [facility] [address] [facility], [place], [address], 12/19/2024 09:54:05 12/20/19 25 12/19/2024 CMP (MALE ) AST (SGOT) 32.0 U/L 0.0-46 .0 Not Available [facility] [address] [facility], [place], [address], 12/19/2024 09:54:05 12/20/1912/19/2024 CMP (MALE ) altv (SGPT) 57.0 U/L 13.0-6 9.0 normal Not Available [facility] [address] [facility], [place], [address], 12/19/2024 09:54:05 12/20/19 25 12/19/2024 CMP (MALE ) A/G ratio 1.8 ratio Not Available [facility] [address] [facility], [place], [address], 12/19/2024 09:54:05 12/20/1912/19/2024 CMP (MALE ) ALP phos 68.0 U/L 30.0-1 40.0 normal Not Available [facility] [address] [facility], [place], [address], 12/19/2024 09:54:05 12/20/1912/19/2024 CMP (MALE ) calcium 8.9 mg/dL 8.4-10 .5 Not Available [facility] [address] [facility], [place], [address], 12/19/2024 09:54:05 12/20/1912/19/2024 CMP (MALE ) sodium 140.0 mmol/ L 136.0- 145.0 Not Available [facility] [address] [facility], [place], [address], 12/19/2024 09:54:05 12/20/19 25 12/19/2024 CMP (MALE ) potassium 3.8 mmol/ L 3.5-5. 1 Not Available [facility] [address] [facility], [place], [address], 12/19/2024 09:54:05 12/20/19 25 12/19/2024 CMP (MALE ) chloride 106.0 mmol/ L 98.0-1 10.0 normal Not Available [facility] [address] [facility] [address], [place], [address], 12/19/2024 09:54:05 12/20/19 25 12/19/2024 CMP (MALE ) C02 28.0 mmol/ L 22.0-3 1.0 Not Available [facility] [address] [facility] [address], [place], [address], 12/19/2024 09:54:05 12/20/19 25 12/19/2024 CMP (MALE ) anion gap 6.0 calc Not Available [facility] [address] [facility] [address], [place], [address], 12/19/2024 09:54:05 12/20/19 25 12/19/2024 CMP (MALE ) osmolality 291.0 calc Not Available [place] [address], [place], [address], 12/19/2024 09:54:05 03/25/20 25 03/25/2025 CT, abdom en + pelvi s, w/ contr ast No observ ation record ed. [email or web address] [facility] [address] [facility], [place], [address], 03/25/2025 15:46:02 Result Notes None recorded. Problems Name Problem SNOMED Code Status Onset Date Resolution Date Notes Provider Name and Address Organization Details Recorded Time Essential hypertension 46287937 Active 2023 LALIT Reis [facility] 4 14:47:58 Hyperglycemia 91493016 Active 2023 LALIT Reis [facility]CDonte 4 14:48:05 Problem Notes None recorded. Procedures Surgical History Date Name Laterality Status Provider Name and Address Organization Details Recorded Time vasectomy completed HOLLY CHRISTINA [facility] L.LLucio 12/16/2024 14:18:25 Imaging Results None recorded. Procedure [...] 22 8:12AM by Holly Christina LPN (Authori zed through Aldo Baez MD), Refill Request; Refill Quantity : 90; Tablet; Not Available Not Available Not Available Vitals Date Recorded Body height Body mass index (BMI) Body weight Body temperature Heart rate Oxygen saturation Oxygen saturation in Arterial blood by Pulse oximetry Systolic blood pressure Diastolic blood pressure Provider Name and Address Organization Details Last Updated DateTime 5 168.91 cm 33.9 kg/m2 19627.1 7 g 97.3 [degF] 84 /min 98 % 98 % 120 mm[Hg] 72 mm[Hg] HOLLY CHRISTINA [facility]Kehinde 14:16:44 Date Recorded Body height Body mass index (BMI) Body weight Oxygen saturation Oxygen saturation in Arterial blood by Pulse oximetry Heart rate Respiratory rate Body temperature Systolic blood pressure Diastolic blood pressure Provider Name and Address Organization Details Last Updated DateTime 5 168.91 cm 34 kg/m2 39950.7 7 g 97 % 97 % 87 /min 18 /min 97.6 [degF] 122 mm[Hg] 80 mm[Hg] Stephanie Johnson [facility] 5 12:24:45 Date Recorded Body height Body mass index (BMI) Body weight Heart rate Systolic blood pressure Diastolic blood pressure Provider Name and Address Organization Details Last Updated DateTime 4 168.91 cm 34 kg/m2 03531.7 7 g 74 /min 141 mm[Hg] 100 mm[Hg] ALCIRA BURHNAM [facility] 4 14:27:39 Date Recorded Body height Body mass index (BMI) Body weight Oxygen saturation Oxygen saturation in Arterial blood by Pulse oximetry Heart rate Systolic blood pressure Diastolic blood pressure Provider Name and Address Organization Details Last Updated DateTime 4 168.91 cm 32.8 kg/m2 01580.0 3 g 96 % 96 % 107 /min 112 mm[Hg] 84 mm[Hg] JOSE SAUL [facility] 4 16:36:30 Social History Question Answer Notes LastModified by [employer] Details LastModified Time Tobacco Smoking Status [facility]/16/[facility]23 13:42:21 When Did You Quit Smoking? 11-15yearssi [email or web address] ette 2009 Information not available 12/16/2024 What Was The Date Of Your Most Recent Tobacco Screening? 03/25/2025 [email or web address] Information not available 03/25/2025 What Is Your Current Pack Years? 10packyears 3 Years [email or web address] Information not available 11/12/2023 Sex: Unknown Functional Status Question Answer Note LastModified by [employer] Details LastModified Time Do you or have you ever used any other forms of tobacco or nicotine? No [email or web address] Information not available 11/12/2023 What is your level of alcohol consumption? Occasional [email or web address] Information not available 01/16/2023 Do you or have you ever used any nicotine-free cigarettes, vape, or chewing tobacco? No Information not available 12/16/2024 Mental Status None recorded. Family History Relationship Description Onset Age of this Age Resolved Age Notes LastModified by Organization Details LastModified Time Mother Diabetes mellitus [email or web address] Not available 11/12 14:48:19 Maternal Grandfather Malignant tumor of testis Not available 11/12 14:48:38 Medical History No medical history recorded. Immunizations Vaccine Type Date Status Note Provider Nam e and Address Organization Details Recorded Time MMR 3 completed HOLLY sorensen, [facility] 11/12/2023 14:47:20 MMR 9 completed HOLLY sorensen, [facility] 11/12/2023 14:47:20 Tdap 2 completed HOLLY sorensen, [facility] 11/12/2023 14:47:20 Hep B, unspecified formulation 0 completed HOLLY sorensen, [facility] 11/12/2023 14:47:20 polio, unspecified formulation 9 completed HOLLY sorensen, [facility] 11/12/2023 14:47:20 polio, unspecified formulation 0 completed HOLLY sorensen, [facility] 11/12/2023 14:47:20 polio, unspecified formulation 3 completed HOLLY sorensen, [facility] 11/12/2023 14:47:20 polio, unspecified formulation 8 completed HOLLY sorensen, [facility] 11/12/2023 14:47:20 polio, unspecified formulation 8 completed HOLLY sorensen, [facility] 11/12/2023 14:47:20 Td (adult), 2 Lf tetanus toxoid, preservative free, adsorbed 3 completed HOLLY CHRISTINA null, [facility] 11/12/2023 14:47:21 Hep B, adolescent/high risk infant 1 completed HOLLY CHRISTINA null, [facility] 11/12/2023 14:47:21 Hep B, adolescent/high risk infant 0 completed HOLLY CHRISTINA null, [facility] 11/12/2023 14:47:21 Hep A, ped/adol, 2 dose 3 completed HOLLY CHRISTINA null, [facility] 11/12/2023 14:47:21 Hib (PRP-T) 0 completed HOLLY CHRISTINA null, [facility] 11/12/2023 14:47:21 DTaP 9 completed HOLLY CHRISTINA null, [facility] 11/12/2023 14:47:21 DTaP 0 completed HOLLY CHRISTINA null, [facility] 11/12/2023 14:47:21 DTaP 3 completed HOLLY CHRISTINA null, [facility] 11/12/2023 14:47:21 DTaP 8 completed HOLLY CHRISTINA null, [facility] 11/12/2023 14:47:21 DTaP 8 completed HOLLY CHRISTINA null, [facility] 11/12/2023 14:47:21 Tdap 7 completed HOLLY CHRISTINA null, [facility] 11/12/2023 14:47:20 Past Encounters Encounter ID Performer Location Encounter Start Date Encounter Closed Date Diagnosis/Indication Diagnosis SNOMED-CT Code Diagnosis ICD10 Code Diagnosis Note [id number] Aldo Baez MD [facility] ([facility]) [address] [place] [address] [phone] 01/16/2023 13:34:12 01/16/2023 18:10:59 High risk sexual behavior 012332321 Z72.51 will need repeat testing in 3 months [id number] Aldo Baez MD [facility] ([facility]) [address] [place] [address] [id number] 11/12/2023 14:20:29 11/12/2023 15:41:53 Atypical chest pain 342039121 R07.89 reduce acidic and spicy foodsreduc e caffeine. [id number] Justino Juarez MD [facility] ([facility]) [address] [place] [address] [phone] 05/20/2024 14:09:23 05/20/2024 17:08:47 Vasectomy requested [id number] Z30.2 Patient is here for a vasectomy consult. He and his significan t other have 3children and have decided that they do not want to have any more children. He denies any contraindi cations and has not had any previous significan t trauma to the genital area. [id number] Justino Juarez MD [facility] ([facility]) [address] [place] [address] [phone] 07/11/2024 15:46:12 07/12/2024 22:46:28 Vasectomy requested [id number] Z30.2 Patient was again explained benefits and risks of Vasectomy and he wishes to proceed. He was undressed and placed on the procedure table. He was sterilely prepped with a betadine solution and draped with the penis pulled upwards and held in place with a sterile towel. If he has not shaved that is done.The patient is supine and the left vas deferens is located and brought to the anterior left scrotum. The area is anesthetiz ed with lidocaine 1% and a small incision is made with further blunt dissection made also. The Vas deferens was then grasped with a clamp and brought through the incision. An incision was made over the connective tissue layers over the vas deferens and then the vas was bluntly dissected. the vas deferens was then grasped at superior and inferior ends with clamps and approximat el 6mm of vas deferens was removed with cauterizat ion performed on both superior and inferior ends. A suture was placed between the ends of the tubes using 5-0 vicryl suture. The skin was then closed with one suture of 5-0 dexilon.In a like manner the right vas deferens was located and brought to the anterior scrotum and anesthetiz ed with lidocaine and incision made. The tube was then brought through the scrotum and dissected away with removal of arianna 6mm portion of the vas. After cauterizat ion of the superior and inferior ends and suture placement the vas deferens was returned to the scrotum. One interrupte d suture of 5-0 Dexilon was used to approximat e wound edges.A pressure dressing was then applied using an athletic supporter and sterile gauze after cleansing the area with clean water. He will wear the athletic supporter overnight and use ice as needed for swelling. No heavy lifting for 2-3 days. He will remove sutures in one week. He will bring in a semen sample after 15-20 ejaculatio ns to verify successful vasectomy before unprotecte d intercours e. [id number] Aldo Baez MD [facility] ([facility]) [address] [place] [address] [phone] 5 12/16/2024 13:48:01 12/17/2024 11:16:38 Atypical chest pain [id number] R07.89 reduce acidic and spicy foodsreduc e caffeine. Esophageal dysphagia 408 32962 R13.19 Adult [facility] examination [id number] Z00.00 [id number] Aldo Baez MD [facility] ([facility]) [address] [place] [address] [phone] 5 12/19/2024 08:59:26 12/19/2024 22:52:41 Essential hypertension [id number] I10 [id number] Aldo Baez MD [facility] ([facility]) [address] [place] [address] [id number] 5 03/25/2025 12:16:01 03/25/2025 13:11:32 Abdominal pain 61147686 R10.9 Right lowe r quadrant pain 345935407 R10.31 heel jar positive, voluntary rlq guarding most ttp at [facility] starting periumbili johanna and migrating to rlqloss [...] by Organization Details LastModified Time None Recorded Advance Directives Directive None Recorded Payers Insurance Date Sequence Insurance Name Policy Number Policy Boland Covered Member ID Boland Member ID Guarantor Name 03/25/2025 1 [employer] [place] (MEDICA[place]AC[place] - HMO) [id number] Alejandro Luz [id number] Alejandro Luz Notes Date Note Type Note Provider Name and Address Organization Details Recorded Time 05/20/2024 text/html He has 3 childre ns and does not want any more. Justino Juarez MD [address] [place] [address], [phone], [facility] 05/20/2024 14:41:53 07/11/2024 text/html Vasectomy. Justino Juarez MD [address] [place] [address], [phone], [facility] 07/11/2024 17:57:37 12/16/2024 text/html DysphagiaReporte d bypatient.Location:thr oat Quality:sticking Severity:worsening;reg urgitation of digested/undigested food Duration:present for 6-12 months Onset/Timing:gradual onset Context:specific foods cause problems(meat) Alleviating Factors:drinking liquids Associated Symptoms:no chest pain; no weight loss; not spitting up coffee ground-like material; no fatigue; no black/tarry stoolsNotes:it feels like it is hung up in the upper esophagus. water will push it down. it happens once every few months. he reports occasional heartburn though far less so than previous the dysphagia is present a little less than one uear.Hypertension IM/FMReported bypatient.Quality:here for check-up Severity:at home BP check: mmg/Hg; 125-130/80s Duration:HTN present for years Onset/Timing:gradual onset Alleviating Factors:medication Self Care:non-smoker Associated Symptoms:no shortness of breath; no palpitations; no chest pain;chest pain(left anterior chest) Aldo Baez MD [address] [place], [phone], [facility] João, Helen 12/16/2024 15:08:45 03/25/2025 text/html Abdominal PainRe ported bypatient.Location:[facility] Quality:aching;dull Severity:mild Onset/Timing:acute Aggravating Factors:movement; he has not [...] has had decreased appetite. Aldo Baez MD [address] [place], [phone], [facility] João, Helen 03/25/2025 13:11:31
--- NOTE | 2025-03-25 14:57 | W.ED.ABDPA2 ---
HPI - Abdominal Pain General: Chief Complaint: Abdominal Pain Stated Complaint: sent by dr ale abd pain Time Seen by Provider: 03/25/25 14:53 Source: patient Mode of arrival: ambulatory Limitations: no limitations History of Present Illness: 34-year-old male states he had abdominal pain started last night states it originally was diffuse and migrated to the right lower quadrant today he seen his PCP who did an outpatient CT that did show appendicitis sent him to the ER. States pain is currently 7 out of 10 denies any fever denies any vomiting or diarrhea. Associated Symptoms: Denies chills, diarrhea, dysuria, fever(s), nausea and vomiting Related Data Home Medications ?Medication ?Instructions ?Recorded ?Confirmed losartan 25 mg tablet 25 mg PO DAILY 02/16/25 02/16/25 pantoprazole 20 mg tablet,delayed 20 mg PO DAILY 02/16/25 02/16/25 release Previous Rx's ?Medication ?Instructions ?Recorded prednisone 20 mg tablet 40 mg (2 x 20 mg) PO DAILY 5 days 02/16/25 #10 tabs Allergies Allergy/AdvReac Type Severity Reaction Status Date / Time No Known Allergies Allergy Verified 02/16/25 11:26 Review of Systems Const: Denies: fever(s), chills, body aches or change in appetite ENMT: Denies: throat pain or dental pain Card: Denies: chest pain Resp: Denies: dyspnea GI: Reports: abdominal pain; Denies: nausea, vomiting or diarrhea : Denies: dysuria Musc: Denies: neck pain or back pain Skin/Breast: Denies: rash Neuro: Denies: headache(s) PFS ED PFSH: Social History Smoking and tobacco/nicotine status: former use of tobacco/nicotine Physical Exam Const: COMMON NORMALS: no acute distress, patient oriented x3 and healthy appearing HENMT: COMMON NORMALS: normocephalic and atraumatic HEAD & SCALP: normocephalic and atraumatic Eye: COMMON NORMALS: conjunctivae normal CONJUNCTIVA: Yes conjunctivae normal Neck/C-Spine: COMMON NORMALS: full ROM and supple Chest: COMMONS NORMALS: normal inspection of the chest Resp: COMMON NORMALS: normal respiratory effort Cardio: COMMON NORMALS: regular rate RATE: regular rate GI: COMMON NORMALS: Normal to inspection, nondistended, normoactive bowel sounds present, Soft to palpation and no masses PALPATION: Yes Soft to palpation and Yes Tenderness to palpation present (GI) Details: RLQ Extremity: COMMON NORMALS: normal to inspection and full ROM Neuro: COMMON NORMALS: patient oriented x3, moves all extremities and no focal motor deficits Psych: COMMON NORMALS: mental status grossly normal, Normal thought process present and cooperative THOUGHT PROCESS: Normal thought process present Skin: COMMON NORMALS: no rashes or lesions noted and no wounds GENERAL SKIN EXAM: no rashes or lesions noted Course Vital Signs: Vital signs: Vital Signs Temperature 98.2 F 03/25/25 14:49 Pulse Rate 99 03/25/25 14:49 Respiratory Rate 18 03/25/25 14:49 Blood Pressure 141/97 03/25/25 14:49 Pulse Oximetry 98 03/25/25 14:49 Oxygen Delivery Me thod Room Air 03/25/25 14:49 MDM - Abdominal Pain Medical Decision Making Patient presents with appendicitis did speak to surgeon likely on to take to the operating room. Medical Records I reviewed the patient's medical records. All radiology interpretation(s) finalized by discharge Discharge Plan Discharge Patient Disposition: Admitted As Inpatient Clinical Impression: Acute appendicitis Condition: Stable Coding Level of Care Code ED Network Cabler for Kaiden Carrasco
[2025-03-25 15:09] LABS: Hematocrit 50.1 % (37-53); Hemoglobin 16.00 g/dL (11.27-16.99); Mean Corpuscular HGB Conc 31.9 g/dL (30-55); Mean Corpuscular Hemoglobin 26.1 pg (27-33); Mean Corpuscular Volume 81.6 fl (82-101); Nucleated Red Blood Cells % 0 %; Platelet Count 231 10^3/cmm (157-399); Red Blood Count 6.14 10^6/uL (3.85-5.65); White Blood Count 13.20 10^3/uL (3.29-11.43)
[2025-03-25] MEDS: ondansetron 2 mg/ML SDV 2 mL 4 MG IVP (15:15)
[2025-03-25] MEDS: morphine 4 mg/mL SDV 1 mL IVP (15:15)
[2025-03-25] MEDS: piperacillin-tazobactam 3.375 GM in sodium chloride 0.9% (plus) 50 ML IV (15:15)
--- NOTE | 2025-03-25 15:15 | P.HP_ITS ---
Providers/Chief Complaint 2 Primary Care Provider: Aldo Baez MD Chief Complaint: sent by dr ale abd pain History of Present Illness Alejandro Luz is a 34 year old male who was referred to the emergency department from the primary care clinic for acute appendicitis. He started having pain yesterday night has continued over the day and localized to right lower quadrant. He endorses anorexia and no other symptoms. Last meal was yesterday at 6 PM. Workup in the outpatient clinic showed a white count of 13,[address] scan was obtained that showed acute appendicitis without perforation. Review of Systems 2 General: Reports: 10 or more systems reviewed and unremarkable except in HPI and below Medications/Allergies Home Medications ?Medication ?Instructions ?Recorded ?Confirmed ?Last Taken ?Type losartan 25 mg tablet 25 mg PO DAILY 02/16/2501/23 Unknown History pantoprazole 20 mg tablet,delayed 20 mg PO DAILY 02/1602/16/25 Unknown History release prednisone 20 mg tablet 40 mg (2 x 20 mg) PO DAILY 5 days 02/16/25 02/16/25 Unknown Rx #10 tabs Allergies Allergy/AdvReac Type Severity Reaction Status Date / Time No Known Allergies Allergy Verified 02/16/25 11:26 PFSH Acute 2 PFSH: Social History Smoking and tobacco/nicotine status: former use of tobacco/nicotine Vitals/I&O/Wt Last Vital Signs Temp 98.2 F 03/25/25 14:49 Pulse 99 03/25/25 14:49 Resp 18 03/25/25 14:49 BP 141/97 03/25/25 14:49 Pulse Ox 98 03/25/25 14:49 O2 Del Method Room Air 03/25/25 14:49 Weight last 48 hrs Weight 214 lb Physical Exam 2 Narrative: General : Patient is well developed , no acute distress, oriented x3 Head : Normal cephalic, a-traumatic. Nose : Mucous membranes are without erythema. Lungs : Equal chest rise bilaterally, no use of accessory muscles, trachea is midline. CV : Rate and rhythm are normal. Abdomen : Soft, there is a pain in the palpation of the right lower quadrant McBurney positive Extremities : No edema. Upper extremities are normal bilaterally. Back : non-tender to palpation, no CVA tenderness. Data 03/25/25 15:03 03/25/25 15:03 A&P Assessment and plan (1) Acute appendicitis: Plan 34-year-old male with acute appendicitis verified with imaging. I have discussed all recent benefits of laparoscopic appendectomy including the risk of bleeding, infection, conversion to open procedure, need for additional procedures, injury to the adjacent structures including the colon the small bowel ureter and great vessels. Hernia formation, intra-abdominal abscess requiring drainage. Patient shows understanding agrees with the plan wishes to proceed with surgery. Will give him a dose of antibiotics right now and will take him to the OR. PDMP PDMP Reviewed: Not Reviewed Attestations 2 Medical Necessity Statement*: Patient for likely discharge after surgery Coding Level of Care Code Acute Code for [facility] Diagnoses Acute appendicitis K35.80
[2025-03-25 15:26] LABS: Alanine Aminotransferase 35 U/L (0-41); Albumin Level 4.5 g/dL (3.5-5.2); Alkaline Phosphatase 93 U/L (40-130); Anion Gap 15.6 (5-19); Aspartate Amino Transferase 18 U/L (0-40); Blood Urea Nitrogen 14 mg/dL (6-20); Calcium 9.4 mg/dL (8.5-10.5); Carbon Dioxide 28 mmol/L (22-29); Chloride 99 mmol/L (98-107); Creatinine Clr Calc Pharmacy 92.8147; Globulin 3.0 g/dL (1.3-4.6); Glucose 90 mg/dL (65-115); Osmolality Calculated 288 mOsm/kg (285-295); Potassium 3.6 mmol/L (3.5-5.1); Sodium 139 mmol/L (136-145); Total Protein 7.5 g/dL (6.6-8.7)
[2025-03-25] MEDS: BUPivacaine 0.25% INJ 10 mL INJECTION (16:38)
--- NOTE | 2025-03-25 16:38 | P.OP_ITS ---
Operative Report Date of procedure: March 25, 2025 Pre-op diagnosis: Acute appendicitis Post-op diagnosis: Same Post-op findings: Inflamed appendix, no perforation. Procedure done: Laparoscopic appendectomy Specimens removed/disposition: Appendix Surgeon: Migel Stark MD [employer]er: JOSIAS OR Staff Estimated blood loss: 5 Complications: None apparent Brief History: This is a 34-year-old male who presented with acute appendicitis verified by imaging. After discussion of risk and benefits with side to proceed to the OR for laparoscopic appendectomy Procedure: Patient was brought into the OR, he was placed in a supine position. General anesthesia was given. The abdomen was prepped and draped in the usual sterile fashion. A timeout was conducted. The abdomen was accessed via a 5 mm Optiview trocar in the left upper quadrant. Pneumoperitoneum was obtained and no evidence of visceral injury during entry was noted. Additional 5 mm trocar was placed in the suprapubic position under direct visualization and a 12 mm trocar was placed in the infraumbilical position also under direct visualization. The patient was placed in steep Trendelenburg with the left side down. The appendix was identified in the right lower quadrant. The mesoappendix was short and very edematous. With careful dissection with LigaSure I was able to take down the mesoappendix from the tip of the appendix to the base of the appendix. The base of appendix appeared healthy. I transected the appendix at the level of the base with a 45 mm blue load Endo ARYAN stapler. The staple line appeared healthy and hemostatic. The appendix was retrieved from the abdomen with a Endo Catch bag. Final inspection of the abdomen showed evidence of no additional pathology. The omentum was pulled down to cover the staple line and appendiceal bed. The umbilical trocar was removed and the trocar site was closed using a Teofilo-Shefali suture passer and 0 Vicryl under direct visualization. The suprapubic trocar was removed under direct visualization. The left upper quadrant trocar was used to evacuate the pneumoperitoneum and subsequently removed. Hemostasis was achieved on the wounds. Local anesthesia was infiltrated. The wounds were closed in layers with #3-0 Vicryl for the subcutaneous tissue #4 Monocryl for the skin. Dermabond was applied. At the end of the procedure all counts were correct, the patient tolerated well the procedure was transferred to the PACU in stable condition.
[2025-03-25] MEDS: lidocaine-epi 1% 20 mL INJ 10 ML INJECTION (16:39)
== END 2025-03-25 18:10 | disposition home or self-care (01) ==
LOC: ER 15:06 → OR 15:17
PROVIDERS: Emergency Provider Emergency Medicine; PCP Family Medicine; Visit Provider Surgery
PROC: 0DTJ4ZZ Resection of Appendix, Percutaneous Endoscopic Approach (ICD-10-PCS; CPT 44970; principal; 2025-03-25 15:30)
DX: K35.80 Unspecified acute appendicitis (principal); K21.9 Gastro-esophageal reflux disease without esophagitis; Z87.891 Personal history of nicotine dependence
CPT/HCPCS: 44970; 80053; 85025; 88304; A4216; J1171; J2270; J2405; J2543; J2704; J3010; J3490; J9999